=== PATIENT | male | born 1970 | race Caucasian/White ===

== ENCOUNTER 2017-01-07 15:45 | Emergency (ER) | payer OTHER ==
[~2017-01-07] VITALS: Ht 175.3 cm; Wt 60.7 kg
[2017-01-07 15:55] VITALS: TEMP 36.8; Ht 175.3 cm; Wt 60.7 kg
[2017-01-07] MEDS ORDERED: MoRPHine SULFATE 4 MG/ML 1 ML CARP\\VIAL IV STA (16:06)
[2017-01-07] MEDS ORDERED: ONDANSETRON INJ 2 MG/ML 2 ML VIAL IV STA (16:06)
[2017-01-07] MEDS ORDERED: AMPICILLIN/SULBACTAM SOD INJ 3,000 MG in SODIUM CHLORIDE 0.9% 100ML 100 ML IV ONE (16:15)
[2017-01-07] MEDS ORDERED: PRVHFAIN INH (16:23)
[2017-01-07] MEDS ORDERED: ADVIN10/60 INH (16:23)
[2017-01-07] MEDS ORDERED: IBUP-103 PO (16:23)
[2017-01-07] MEDS ORDERED: AMOX875T PO (16:58)
[2017-01-07] MEDS ORDERED: OXYC-57 PO (16:58)
--- NOTE | 2017-01-07 16:58 | EMERGENCY ROOM VISIT NOTE ---
History First contact with patient: 15:58 Chief Complaint: DENTAL PAIN Stated Complaint: TOOTH ACHE Nursing Triage Summary: Right lower dental pain. "I took 2 advil at approx 10 am" per pt. Pt states he sees [facility] - tried call office - no answer. History of Present Illness The patient is a 46 year old male who presents to the Emergency Department by private vehicle for evaluation of RIGHT jaw pain and swelling. The patient reports that he has had issues with his teeth for the past year. He had all of his upper teeth removed a while ago with success. He reports that today he will with pain and swelling to the RIGHT jaw. He applied clove oil to the area without relief of symptoms. He has been using Motrin without relief of symptoms. He does not have a dentist appointment set up at this time, however he did recently establish insurance. He rates his current discomfort as a 6/ 10. He denies any fevers, chills, headaches, dizziness, lightheadedness, nausea , vomiting, or neck pain/stiffness. He smokes cigarettes daily. Review of Systems A complete 10-point Review of Systems was discussed with the patient, with pertinent positives and negatives listed in the History of Present Illness. All remaining Review of Systems questions can be considered negative unless otherwise specified. Social History Smoking Status: Current Every Day Smoker Smokeless Tobacco Use: No Alcohol Use: none Drug Use: none Current/Historical Medications Scheduled Amoxicillin & Pot Clavulanate (Augmentin 875-125 mg), 875 MG PO BID Scheduled PRN Albuterol (Ventolin Hfa), 2 PUFFS INH QID PRN for SOB/Wheezing Fluticasone Prop/Salmeterol (Advair Diskus 100/50 60 Dose), 1 PUFF INH BID PRN for SOB/Wheezing Ibuprofen Tab (Advil), 400 MG PO Q6H PRN for Pain Oxycodone/Acetaminophen 5MG/325MG (Percocet 5MG/325MG), 1-2 TABS PO Q6 PRN for Pain Allergies Coded Allergies: Hydrocodone (Verified Adverse Reaction, Mild, nausea. vomiting, 08/20/15) Physical Exam Vital Signs Date Time Temp Pulse Resp B/P Pulse Ox O2 Delivery O2 Flow Rate FiO2 01/07/17 17:08 98 16 116/77 98 01/07/17 15:55 36.8 98 16 114/81 98 Room Air Pain Rating (0-10): 6 Physical Exam VITAL SIGNS - Vital signs and nursing notes were reviewed. GENERAL - 46-year-old male appearing his stated age who is in no acute distress. Communicates well with provider and answers questions appropriately. HEAD - Normocephalic. Edema and tenderness to palpation noted to the RIGHT lower jaw. No fluctuance to palpation. No erythema or warmth to touch. No Bhatti 's Sign or Raccoon's Eyes. No depressed skull fractures palpable. EYES - PERRL with EOMI bilaterally. EARS - No deformities of external structures noted on gross examination bilaterally. No pain elicited with palpation of the tragus bilaterally. External auditory canals without discharge or otorrhea. Tympanic membranes pearly izquierdo without retraction or bulging. No fluid or purulent material visualized behind the TM. NOSE - Midline and without cyanosis. No epistaxis or purulent drainage noted. Septum midline without deviation or septal hematoma noted. MOUTH/OROPHARYNX - Without perioral cyanosis. Buccal mucosa pink and moist and without leukoplakia. Tongue midline with equal elevation of palate bilaterally. No tonsillar hypertrophy, erythema, or exudates noted. Poor dentition noted. Multiple carious teeth that are completely carious to the bases of the gums noted to the RIGHT-sided jaw area. No abscesses noted. No sublingual edema. No trismus. No fluctuance to palpation or drainage noted. NECK - Neck with FROM. Supple to palpation. No lymphadenopathy noted. No nuchal rigidity. Medical Decision & Procedures Medications Administered Medications (Trade) Dose Ordered Sig/Camron Route Start Time Stop Time Status Last Admin Dose Admin Ampicillin Sodium/ Sulbactam Sodium/ Sodium Chloride (Unasyn Inj/Nss 100ml) 108 ml @ 200 mls/hr ONE ONCE IV 01/07/17 16:15 01/07/17 16:47 DC 01/07/17 16:22 200 MLS/HR Morphine Sulfate (MoRPHine SULFATE INJ) 4 mg NOW STAT IV 01/07/17 16:06 01/07/17 16:07 DC 01/07/17 16:21 4 MG Ondansetron HCl (Zofran Inj) 4 mg NOW STAT IV 01/07/17 16:06 01/07/17 16:07 DC 01/07/17 16:22 4 MG ED Course Patient was seen and evaluated by myself. I had a lengthy discussion with the patient regarding management. IV lock was established. The patient was treated with 3 g of IV Unasyn. He received 4 mg morphine and 4 mg Zofran. The patient was encouraged to follow-up with his dentist on Monday. He was provided Augmentin and Percocet to be used in the outpatient setting. He was educated on worrisome symptoms for return visit to the emergency department. Patient discharged home afebrile and in good condition. Medical Decision Given the patient's presentation and exam findings, I did elect to perform the above-mentioned workup. The patient presents today with RIGHT lower jaw pain and swelling. He has tenderness to palpation in the affected area. He has no drainable abscesses noted. The patient is likely experiencing a periapical abscess with associated facial cellulitis. I do not feel that labs will aid in diagnosis at this point. He was treated with IV Unasyn. He'll be sent home on Augmentin as well as Percocet. He'll follow-up with his dentist this week. He will return for changing/worsening symptoms. Patient discharged home afebrile and in good condition. In the evaluation and treatment of this patient, the following differential diagnoses were considered: Periapical Abscess, Osteonecrosis of the Jaw, Dental Fracture, Dental Caries, Hema's Angina, Vincent's Angina, Facial Cellulitis. Impression Primary Impression: Periapical abscess Additional Impression: Facial cellulitis Departure Information Dispostion Home / Self-Care Condition GOOD Prescriptions Oxycodone/Acetaminophen 5MG/325MG (PERCOCET 5MG/325MG) Tab 1-2 TABS PO Q6 Y for Pain, #20 TAB For Initial Treatment Prov: Paramjit Lee PA-C 01/07/17 Amoxicillin & Pot Clavulanate (Augmentin 875-125 mg) 1 Tab Tab 875 MG PO BID for 10 Days, #20 TAB Prov: Paramjit Lee PA-C 01/07/17 Referrals No Doctor, Assigned (PCP) Patient Instructions ED Abs[facility] Dental, [facility] Additional Instructions You have been treated in the Emergency Department for your LEFT Ankle Sprain. For pain control, you can use the following luxg-voc-ipphnxa medicines (if >12 yo): - Regular strength (325mg/tab) Tylenol (acetaminophen) 2 tabs every 4-6 hours as needed. Do not exceed 12 tablets in a 24 hour period. Avoid taking more than 4 grams (4000 mg) of Tylenol per day. This includes any other sources of acetaminophen you may take on a regular basis. - Regular strength (200 mg/tab) Advil (ibuprofen) 1-2 tabs every 4-6 hours as needed. Do not exceed a dose of 3200 mg per day. If this is a recent injury (<24 hrs), ice can be applied to the area of pain for the first 3 days to help decrease pain and inflammation. Please use the crutches and ankle splint until you are able to ambulate without discomfort. You can continue to use the ankle splint for the next 1-2 weeks to help with ankle stability. Follow-up with your primary care provider or Orthopedic Surgeon in 4-5 days if your symptoms are not improving despite the treatment plan outlined above. Return to the Emergency Department if your current symptoms worsen despite treatment course outlined above, or if you develop any of the following symptoms : intractable pain despite aforementioned treatment course or new onset of numbness or tingling of the foot. Problem Qualifiers
[2017-01-07 17:08] VITALS: BP 116/77; PULSE 98; O2SAT 98
== END 2017-01-07 17:10 | disposition home or self-care (01) ==
LOC: C.EDB 15:46 → C.EDD 17:10
DX: K04.7 Periapical abscess without sinus (principal); L03.211 Cellulitis of face; F17.200 Nicotine dependence, unspecified, uncomplicated; Z88.5 Allergy status to narcotic agent